=== PATIENT | female | born 1970 | race Two or more races ===

== ENCOUNTER → 2016-12-30 | Outpatient (CLI) | payer BC ==
--- NOTE | ~2016-12-30 | MY29 ---
[facility] A Service of [facility] RADIOLOGY TEXT RESULTS PATIENT: AZIZA MORELOS LOCATION: [facility] : 72 UNIT #: [id number] AGE: [address]: KRISTIN FERREIRA APRN SEX: F ORDER DR: [id number] [facility] [address] [place], [place] [address] [id number] O MR#: [id number] #: [id number] NAME: AZIZA MORELOS : 1970 SEX: F STUDY DATE/TIME: 12/30/2016 16:17 UNIT: [facility] ROOM: STUDY DESCRIPTION: MY CARL SCREENING W/ CAD BILAT Attending Physician: Maria R Ferreira M.D. Ordering Physician: Maria R Ferreira M.D. Primary Care Physician: Micheal Bailey M.D. MEDICAL IMAGING REPORT This report is preliminary unless electronic signature is present EXAM Digital screening mammogram, 12/30/2016, [facility]. HISTORY 46-year-old woman no risk elevation. Annual screen. COMPARISON 10/29/2011, 08/02/2013, 10/10/2014, 10/19/2015 FINDINGS Digital imaging of each breast was completed utilizing a two-view examination of each breast in craniocaudal and mediolateral-oblique projections. Review and interpretation of digital mammograms include a second review in conjunction with FDA-approved CAD device. There is a normal parenchymal presentation bilaterally consistent with the patient's age. There are no breast masses imaged and no parenchymal asymmetry is visualized. There are no suspicious microcalcifications and I see no focal architectural disturbance. IMPRESSION Negative screening digital mammogram. One-year followup recommended. Patients over the age of 40 are entered into a reminder system with target due date for the next mammogram. A result letter will also be sent to the patient. BIRADS: 1 Negative Dictated by... Jose E Peter M.D. [facility] A Service of [facility] RADIOLOGY TEXT RESULTS PATIENT: AZIZA MORELOS LOCATION: [facility] : 72 UNIT #: [id number] AGE: [address]: KRISTIN FERREIRA APRN SEX: F ORDER DR: THIS IS AN ELECTRONICALLY VERIFIED REPORT Jose E Peter M.D. at 12/31/2016 10:09 AM Luma TD: 12/31/2016 09:42 JOB #: [id number] MEDICAL IMAGING REPORT Page 1 of 1 COPY
== END | disposition home or self-care (01) ==
LOC: CWCC 15:56
DX: Z12.31 Encounter for screening mammogram for malignant neoplasm of breast (principal)
CPT/HCPCS: G0202